=== PATIENT | male | born 1965 | race Caucasian/White ===

== ENCOUNTER → 2023-08-30 13:50 | Outpatient (BNVA) | payer BC, SELFPAY | PROVIDERS: PCP Nurse Practitioner Family; Visit Provider Orthopaedic Surgery | DX: M48.062 Spinal stenosis, lumbar region with neurogenic claudication (principal); M54.9 Dorsalgia, unspecified | CPT/HCPCS: 72110; 99204 ==

== ENCOUNTER → 2024-02-23 14:43 | Outpatient (BNVA) | payer BC, MEDICAID, SELFPAY | PROVIDERS: PCP Nurse Practitioner Family; Visit Provider Orthopaedic Surgery | DX: M54.50 Low back pain, unspecified (principal); G89.29 Other chronic pain; M48.062 Spinal stenosis, lumbar region with neurogenic claudication | CPT/HCPCS: 72110; 99214 ==

== ENCOUNTER → 2024-04-02 10:42 | Outpatient (BNVA) | payer BC, MEDICAID, SELFPAY | PROVIDERS: PCP Nurse Practitioner Family; Visit Provider Specialist | DX: G56.03 Carpal tunnel syndrome, bilateral upper limbs (principal); M06.4 Inflammatory polyarthropathy | CPT/HCPCS: 36415; 73130; 80053; 84550; 85025; 85651; 86140; 86200; 86225; 86235; 86431 ==

== ENCOUNTER → 2024-08-21 12:52 | Outpatient (BNVA) | payer BC, MEDICAID, SELFPAY | PROVIDERS: PCP Nurse Practitioner Family; Visit Provider Orthopaedic Surgery | DX: Z01.818 Encounter for other preprocedural examination (principal); M54.50 Low back pain, unspecified; G89.29 Other chronic pain; M48.062 Spinal stenosis, lumbar region with neurogenic claudication | CPT/HCPCS: 36415; 72110; 80053; 81001; 85025 ==

== ENCOUNTER 2024-10-17 10:51 | Day surgery (SDC) | payer BC, MEDICAID, SELFPAY ==
[2024-10-17] VITALS (12 sets, daily range): BP systolic 109–175; BP diastolic 53–97; PULSE 70–80; RESP 14–17; TEMP 36.3–36.6; O2SAT 93–100; BMI 34.5
--- NOTE | 2024-10-17 11:39 | ANES.PREANE2 ---
Pre-Anesthetic Assessment Height/Weight: Height 6 ft Preop Diagnosis: Lumbar stenosis neurogenic claudication Operation Date: 10/17/24 13:10 Proposed Procedures p Lumbar Spine Decompression(Not Applicable) - Billy Brar, DO Was Beta Jovani taken within 24 hours: N/A Was Clonidine taken within 24 hours: N/A Last intake: Intake Last Liquid Date 10/17/24 Last Liquid Time 04:00 Last Solid Date 10/16/24 Last Solid Time 23:00 Social No alcohol and No tobacco Exam alert, oriented x 3 and regular rate & rhythm Airway Submandibular: within normal limits Cervical ROM: within normal limits Mallampati: Class III Dentition: false Anesthetic Plan ASA status: 2 Anesthesia: General Other: No prior issues with anesthesia NPO since yesterday evening History of hypertension on lisinopril?HCTZ Patient states that he does not sleep well at all but is unsure of WILLIAM Labs reviewed from 08/21/2024 and acceptable for procedure Plan for GETA Medications/Allergies Home Medications ?Medication ?Instructions ?Recorded ?Confirmed ?Last Taken ?Type amitriptyline 50 mg tablet 50 mg PO DAILY 09/15/23 10/16/24 10/15/24 History atorvastatin 10 mg tablet 10 mg PO DAILY 09/15/23 10/16/24 10/16/24 History hydrocodone 10 mg-acetaminophen 1 tab PO Q8H PRN Pain 08/21/24 10/16/24 10/16/24 History 325 mg tablet ibuprofen 800 mg tablet 800 mg PO PRN PRN Pain 10/16/24 10/17/24 10/17/24 06:00 History lisinopril 20 1 tab PO DAILY 10/16/24 10/16/24 10/16/24 History mg-hydrochlorothiazide 12.5 mg tablet Allergies Allergy/AdvReac Type Severity Reaction Status Date / Time Penicillins Allergy Unknown Verified 10/16/24 14:17 [facility] Anesthesia Social History Smoking and tobacco/nicotine status: unknown if used tobacco/nicotine
[2024-10-17] MEDS: sodium chloride 0.9% 1,000 ML 30 ML IV (12:06)
[2024-10-17] MEDS: midazolam 1 mg/mL INJ 2 mL 2 MG IVP (12:20)
--- NOTE | 2024-10-17 12:31 | W.PM.OPSFHP ---
Same Day Surgery H&P Indication for Procedure/HPI DATE OF PROCEDURE: October 17, 2024 CHIEF COMPLAINT/INDICATIONFOR SURGICAL PROCEDURE: Back pain left leg pain PREOP DIAGNOSIS: Lumbar stenosis neurogenic claudication PLANNED PROCEDURE: Operation Date: 10/17/24 13:10 Proposed Procedures p Lumbar Spine Decompression(Not Applicable) - Billy Brar, DO Medications/Allergies* Home Medications ?Medication ?Instructions ?Recorded ?Confirmed ?Type amitriptyline 50 mg tablet 50 mg PO DAILY 09/15/23 10/16/24 History atorvastatin 10 mg tablet 10 mg PO DAILY 09/15/23 10/16/24 History hydrocodone 10 mg-acetaminophen 1 tab PO Q8H PRN Pain 08/21/24 10/16/24 History 325 mg tablet ibuprofen 800 mg tablet 800 mg PO PRN PRN Pain 10/16/24 10/17/24 History lisinopril 20 1 tab PO DAILY 10/16/24 10/16/24 History mg-hydrochlorothiazide 12.5 mg tablet Allergies/Adverse Reactions Allergy/AdvReac Type Severity Reaction Status Date / Time Penicillins Allergy Unknown Verified 10/16/24 14:17 Current Medications: Generic Name Dose Route Start Last Admin Trade Name Freq PRN Reason Stop Dose Admin Sodium Chloride 1,000 mls @ 30 mls/hr 10/17/24 11:15 10/17/24 12:06 Sodium Chloride 0.9% IV 10/18/24 11:14 30 mls/hr .Q24H HALIMA Administration Midazolam HCl 2 mg 10/17/24 11:11 10/17/24 12:20 Midazolam 1 Mg/Ml Inj 2 Ml IVP 2 mg Q5M PRN Administration Preop Anxiety Pertinent History/Comorbid Conditions* Social History Smoking and tobacco/nicotine status: unknown if used tobacco/nicotine Pertinent Exam Findings alert, oriented x 3 and clear to auscultation bilaterally Recommendations Risks and benefits of procedure reviewed Surgery/Procedure today Coding Level of Care Code Acute Code for Amaury Fwkrystal
[2024-10-17] MEDS: clindamycin 600 MG/50 ML PREMIX IV (12:55)
[2024-10-17] MEDS: lidocaine-epi 1% 20 mL INJ INJECTION (13:25)
--- NOTE | 2024-10-17 13:59 | PM.OP ---
Operative Report Date of procedure: October 17, 2024 Pre-op diagnosis: Lumbar stenosis neurogenic claudication Post-op diagnosis: same Procedure done: L4-5 laminectomy with partial facetectomy Surgeon: Billy Brar DO Estimated blood loss (mL): 5 Procedure: L4-5 laminectomy with partial facetectomy Patient is brought to the operative suite. After undergoing anesthesia they are placed in the prone position. All areas of impingement are well padded. Patient is then prepped and draped in the normal sterile fashion. A skin incision is made over the L4/5 level. This is confirmed under c-arm guidance. A series of dilators are passed and the tubular retractor is docked on the L4 lamina. A bovie is used to clear the soft tissue off the lamina and the L 4/5 facet joint. A high speed vikash is then used to perform the laminectomy and take down the medial aspect of the L 4/5 facet joint. A kerrison rongeure was then used to take down the remaining lamina and smooth the edge of the laminectomy up to the point where the ligamentum flavum attaches. Attention was then brought to the medial aspect of the facet joint. The remaining medial aspect of the superior and inferior aspect of the facet joint were taken down with the kerrison from the pedicle of L4 to L 5. The facet joint had significant hypertrophy. Attention was then brought to the Ligamentum Flavum. The ligament was taken down from the lamina of L4 to L5 and out medially to the remaining facet joint. The ligament was thick. The dura was then exposed. The dura was in good repair. The L4 nerve was then traced with a curette out the L4/5 foramen and found to be adequately decompressed. The L5 nerve was traced with a curette around the L5 pedicle. The lateral recess was opened with a kerrison helping to further decompress the L5 nerve. Wound is then irrigated copiously with saline and surgiflo is used to stop any bleeding. The tubular retractor is removed and the wound is closed with vicryl and monocryl suture. Glue is then used to protect the wound. A sterile dressing is then placed. Patient was then placed in the supine position and transferred to the PACU in stable condition.
--- NOTE | 2024-10-17 14:22 | ANE.PACU2 ---
Inpatient post-anesthesia follow up: Airway intact: Yes Vital signs: Temperature 97.6 F Pulse Rate 80 Respiratory Rate 16 Blood Pressure 175/81 Pulse Oximetry 97 Oxygen Delivery Me thod Room Air Oxygen Flow Rate 6 Fraction of Inspir ed Oxygen Hydration adequate: Yes Nausea and vomiting: No Pain level: 2 Mental status: Baseline
--- NOTE | 2024-10-17 14:52 | XR_ITS ---
WS: [id number] Lumbar spine, C-arm fluoroscopy views, 10/17/2024 Clinical Data: or pic, decompression Comparison: Lumbar spine, 08/21/2024 Findings: Dr. Brar performed a lumbar decompression. XR/XR lumbar spine 1V [id number] Impression: Lumbar decompression.
[2024-10-17] MEDS: HYDROcodone-acetaminophen 10-325 mg Tablet 1 TAB PO (15:26)
== END 2024-10-17 15:55 | disposition home or self-care (01) ==
PROVIDERS: PCP Nurse Practitioner Family; Visit Provider Orthopaedic Surgery
PROC: (CPT 63005; principal; 2024-10-17 13:10)
DX: M48.062 Spinal stenosis, lumbar region with neurogenic claudication (principal); I10 Essential (primary) hypertension
CPT/HCPCS: 63047; 72020; 76000; J1100; J2250; J2405; J2704; J3010; J3490; J3535; J7030; J9999

== ENCOUNTER 2025-02-21 09:15 | Outpatient (CLI) | payer BC, MEDICAID, SELFPAY ==
--- NOTE | 2025-02-21 09:30 | MR_ITS ---
WS: [id number] MRI LUMBAR SPINE NONCONTRAST HISTORY: Spinal stenosis, low back pain. LEFT leg pain. 4 months postop decompression lumbar spine. COMPARISON: 10/17/2024, 08/21/2024 and MRI 06/27/2024 TECHNIQUE: Sagittal and axial multisequence imaging is submitted. Mild cervical stenosis at C3-4 and C4-5. At T3-4 disc level facet joint osteophyte contacts the posterior thoracic cord. Smaller posterior facet osteophyte at T5-6. 2 mm retrolisthesis of L2. Endplate osteophytes at all levels in the lumbar spine. Disc spaces and vertebral body heights are well-preserved. Schmorl's nodes at L1. Conus terminates normally at L1. L1-L2: Mild facet arthritis. No significant stenosis. L2-L3: Mild annular disc bulging with a RIGHT foraminal broad-based disc protrusion. Mild ligamentum flavum and facet arthritis. Disc protrusion contacting the RIGHT traversing L3 nerve root is suspected. Mild central, subarticular recess and foraminal stenosis. Similar to the prior study. L3-L4: Mild annular disc bulging with mild osteophytic ridging, mild ligamentum flavum and facet arthritis. Mild central, subarticular recess and moderate foraminal stenosis, slightly greater on the RIGHT. L4-L5: Osteophytic ridging with disc bulging. Central disc protrusion. Moderate ligamentum flavum and facet arthritis. Left-sided hemilaminectomy defect. Continued moderate to severe central with bilateral subarticular recess and LEFT foraminal stenosis. Severe RIGHT foraminal stenosis. Complete effacement of fat in the RIGHT foramen. L5-S1: Diffuse disc bulging with osteophytic ridging. Moderate to severe facet joint arthropathy. Moderate to severe bilateral foraminal stenosis due to disc osteophyte disease. Fatty atrophy of the psoas muscles with a small lipoma in the LEFT psoas muscle measuring 2.5 cm. Small amount of marrow edema in the posterior elements of L4 and L5. Not changed. MR/MR lumbar spine wo con* [id number] IMPRESSION: 1. Status post LEFT hemilaminectomy defect at L4-5 since the prior study of . 2. Moderate to severe central with bilateral subarticular recess and LEFT fora rad stenosis. Severe RIGHT foraminal stenosis at L4-5. Similar to the prior s tudy. Central disc protrusion. 3. Moderate to severe bilateral foraminal stenosis at L5-S1, unchanged. 4. Moderate bilateral foraminal stenosis, RIGHT greater than LEFT at L3-4 with mild central and subarticular recess stenosis. 5. Broad-based RIGHT foraminal disc protrusion at L2-3. Additional small RIGHT subarticular disc protrusion with mild contact on the RIGHT traversing L3 nerv e root. Mild central, subarticular recess and foraminal stenosis.
== END 2025-02-21 09:16 | disposition home or self-care (01) ==
LOC: RAD 09:16
PROVIDERS: PCP Nurse Practitioner Family; Visit Provider Orthopaedic Surgery
DX: M48.062 Spinal stenosis, lumbar region with neurogenic claudication (principal); M51.26 Other intervertebral disc displacement, lumbar region; Z98.890 Other specified postprocedural states
CPT/HCPCS: 72148